=== PATIENT | female | born 2005 | race Hispanic/Latino ===

== ENCOUNTER 2024-05-27 14:59 | Emergency (ER) | payer SELFPAY ==
[~2024-05-27] VITALS: Ht 165.1 cm; Wt 50.8 kg
--- NOTE | 2024-05-27 15:15 | ERN ---
General Chief Complaint: Syncope Stated Complaint: ABDOMINAL PAIN,DIZZY,VOMITTING,FAINTING Time Seen by MD: 15:02 History of Present Illness Initial Comments 19-year-old female otherwise healthy presents for syncopal episode. She reports she was taking a shower, she felt faint. She had a control follow up with the ground. She did not hit her head. She reports that she has been in her normal state of health other than having a recent heavy menstrual cycle. She denies any flu-like symptoms. Denies any vomiting or diarrhea. She denies any previous syncopal episodes. She denies any recent palpitations or chest pains. Allergies: Coded Allergies: No Known Drug Allergies (Unverified Allergy, Unknown, 05/27/24) ROS Dictation CONSTITUTIONAL: No chills, no fever, no weakness, no diaphoresis, no malaise. HEAD/FACE: No signs of trauma. EENT: No eye pain, no blurred vision, no tearing, no double vision, no ear pain, no ear discharge, no nose pain, no nasal congestion, no throat pain, no throat swelling, no mouth pain. RESPIRATORY: No cough, no orthopnea, no SOB, no stridor, no wheezing. CARDIOVASCULAR: Syncopal episode GASTROINTESTINAL/ABDOMINAL: No abdominal pain, no constipation, no diarrhea, no nausea, no vomiting. GENITOURINARY: No abnormal discharge, no dysuria, no frequent urination, no hematuria. No complaints of pain in the genitals. MUSCULOSKELETAL: No back pain, no gout, no joint pain, no joint swelling, no muscle pain, no muscle stiffness, no neck pain. INTEGUMENTARY: No change in color, no change in hair/nails, no dryness, no lesion, no lumps, no rash. NEUROLOGICAL/PSYCH: No anxiety, not depressed, no emotional problem, no headache, no numbness, no pre-existing deficit, no history of seizures, no tremors, no weakness. HEMATOLOGIC/LYMPHATIC: Not anemic, no history of blood clots, no apparent bleeding, no bruising, glands not swollen. All Systems Negative, Except as Noted. Physical Exam Physical Exam Dictation VITAL SIGNS: Reviewed. GENERAL APPEARANCE: Alert, oriented x3, no acute distress HEAD AND FACE: Non-traumatic. EYES: PERRL, pink conjunctivas, eyelid no trauma, anterior chamber clear. EARS: Pinnas intact and no signs of trauma or erythema. Ear canals clear and no discharge. TMs no erythema. NOSE: No discharge, no bleeding. OROPHARYNX: Mouth normal, teeth no caries, tongue pink. Pharynx clear, no erythema. Tonsils no exudates, no abscesses noted. Mucous membrane moist. NECK: Supple, non-tender, no thyromegaly, no masses, no JVD, no bruits. BREAST: Deferred. CHEST: No tenderness, no crepitus, no paradoxical movement, no retractions. LUNGS: Clear, well-ventilated, symmetric, no rales, no wheezing, no rhonchi, no stridor, good breath sounds bilaterally. HEART: Regular rate, regular rhythm, no murmur, no gallops. VASCULAR: No peripheral edema. ABDOMEN: Soft, positive bowel sounds, nondistended, no guarding, nontender, no rebound, no masses no hepatomegaly, no splenomegaly, no Crawford's sign, no hernia s. RECTAL: Deferred. GENITAL: Deferred. NEUROLOGICAL: Normal speech, gross motor function intact, gross sensory function intact. MUSCULOSKELETAL: Neck nontender, full range of motion, back nontender, full range of motion. EXTREMITIES: Nontender, full range of motion. SKIN: Color pink, dry, no turgor, no rash, no lacerations, no abrasions, no contusions. LYMPHATICS: Deferred. Results Laboratory and Microbiology Lab and Micro Result Laboratory Tests Test 05/27/24 15:30 White Blood Count 6.5 K/uL (4.8-10.8) Red Blood Count 4.44 MIL/uL (4.00-5.50) Hemoglobin 13.0 g/dL (12.0-16.0) Hematocrit 40.8 % (36-48) Mean Corpuscular Volume 91.9 fL (80-100) Mean Corpuscular Hemoglobin 29.3 pg (27.0-33.0) Mean Corpuscular Hemoglobin Concent 31.9 g/dL (32.0-36.0) L Red Cell Distribution Width 13.2 % (11.0-15.5) Platelet Count 191 K/uL (130-400) Mean Platelet Volume 12.1 fL (7.5-10.5) H Immature Granulocyte % (Auto) 0.2 % (0-1) Neutrophils (%) (Auto) 77.3 % (40.0-77.0) H Lymphocytes (%) (Auto) 14.0 % (21.0-51.0) L Monocytes (%) (Auto) 6.3 % (3.0-13.0) Eosinophils (%) (Auto) 1.7 % (0.0-8.0) Basophils (%) (Auto) 0.5 % (0.0-5.0) Neutrophils # (Auto) 5.0 K/uL (1.8-7.7) Lymphocytes # (Auto) 0.9 K/uL (1.0-4.8) L Monocytes # (Auto) 0.4 K/uL (0.1-1.0) Eosinophils # (Auto) 0.11 K/uL (0.00-0.70) Basophils # (Auto) 0.03 K/uL (0.00-0.20) Absolute Immature Granulocyte (auto 0.01 K/uL (0-1) Nucleated Red Blood Cells 0.0 % (0.0-0.19) Sodium Level 140 mmol/L (136-145) Potassium Level 3.6 mmol/L (3.5-5.1) Chloride Level 104 mmol/L (101-111) Carbon Dioxide Level 30 mmol/L (21-32) Blood Urea Nitrogen 9 mg/dL (7-18) Creatinine 0.7 mg/dL (0.5-1.0) Glomerular Filtration Rate Calc 127 mL/min (>90) Random Glucose 116 mg/dL (70-105) H Total Calcium 8.7 mg/dL (8.5-10.1) Total Creatine Kinase 63 U/L (21-232) Troponin I High Sensitivity < 4.0 ng/L (4-50) L Serum Test, Qualitative NEGATIVE (NEGATIVE) MDM CC: Syncopal episode, heavy menstrual cycle Historian: Patient Comorbidities: None Limitations by social determinants: None Differential diagnosis: Vasovagal syncope, anemia, electrolyte abnormality, cardiogenic syncope, other. EKG: Sinus rhythm rate of 63 with a normal axis, good R-wave progression, intervals are stable. No STEMI. Independently interpreted by me. Labs (independently ordered & interpreted by me): CBC is normal. Chemistry panel is normal. CK normal. Troponin normal. HCG is negative. Treatment and ED: 1 L normal saline. Patient likely had a vasovagal episode. I do not see any signs of anemia, electrolyte abnormalities, or cardiac causes of the syncope. She has a normal cardiac exam. She was back to baseline currently. At this point in time we will discharge and recommend PCP follow up. ED Course Orders Procedure Category Date Status Time Cbc With Differential LAB 05/27/24 Complete 15:13 Cardiac Panel LAB 05/27/24 Complete 15:13 Testing, LAB 05/27/24 Complete Serum Hcg 15:13 Urinalysis Profile LAB 05/27/24 Logged 15:13 Chest 1vw RAD 05/27/24 Logged 15:13 12 Lead Ekg Tracing- EKG 05/27/24 Complete Technical 15:13 0.9%Nacl 1000ml (Ns PHA 05/27/24 Complete 1000ml) 15:30 Basic Metabolic Panel LAB 05/27/24 Complete 15:13 Current Medications Medications (Trade) Dose Ordered Sig/Danyell Route PRN Reason Start Time Stop Time Status Last Admin Dose Admin Sodium Chloride 1,000 ml @ 0 mls/hr ONCE ONCE IV 05/27/24 15:30 05/27/24 15:31 DC Vital Signs Date Time Temp Pulse Resp B/P (MAP) Pulse Ox O2 Delivery O2 Flow Rate FiO2 05/27/24 15:13 97.9 63 16 110/69 99 Room Air DX & DISP Disposition: Discharge Departure Impression: Primary Impression: Episode of syncope Condition: Stable Additional Instructions: You had a syncopal episode today. As we discussed, most causes of syncope are not dangerous. You do not appear to have any dangerous causes today. Your EKG is normal. Your blood work (CBC, BMP, CK, hCG, troponin) is normal. You received 1 L of normal saline here in the ER. I recommend that you get good nutrition and hydration for the next day or two. Try to get at least 8 hours of sleep. Avoid drugs and alcohol. Monitor for any heart palpitations, chest pains, other episodes of syncope, or any other concerning symptom. Return to the emergency department if these develop. Otherwise, I do recommend that you follow up with your primary doctor next week for re-evaluation. Referrals: SELF,REFERRAL (PCP) ORTEGA JUAREZ DO May 27, 2024 15:15
--- NOTE | 2024-05-27 15:29 | EKG ---
[facility] Test Date: 2024-05-27 Test Time: 15:26:49 Pat Name: TEMO TERRELL Department: [facility] Room: Gender: F Installation Manager: [birth year] : 2005 Requested By: ORTEGA JUAREZ Order Number: [id number] Reading MD: Beau Mcneill Measurements Intervals [place] Rate: 63 P: 14 [place]: 142 QRS: 86 QRSD: 70 T: 29 QT: 410 QTc: 419 Interpretive Statements Sinus rhythm No previous ECG available for comparison Electronically Signed On 05-27-2024 19:50:25 RN TELEPHONE TRIAGE by Beau Mcneill Please click the below link to view image of tracing.
[2024-05-27 15:48] LABS: BASOPHILS # (AUTO) 0.03 K/uL (0.00-0.20); BASOPHILS % (AUTO) 0.5 % (0.0-5.0); EOSINOPHILS # (AUTO) 0.11 K/uL (0.00-0.70); EOSINOPHILS % (AUTO) 1.7 % (0.0-8.0); HEMATOCRIT 40.8 % (36-48); IMMATURE GRANULOCYTE ABSOLUTE 0.01 K/uL (0-1); LYMPHOCYTES # (AUTO) 0.9 K/uL (1.0-4.8); MEAN CORPUSCULAR HEMOGLOBIN 29.3 pg (27.0-33.0); MEAN CORPUSCULAR HGB CONC 31.9 g/dL (32.0-36.0); MEAN CORPUSCULAR VOLUME 91.9 fL (80-100); MONOCYTES # (AUTO) 0.4 K/uL (0.1-1.0); MONOCYTES % (AUTO) 6.3 % (3.0-13.0); NEUTROPHILS % (AUTO) 77.3 % (40.0-77.0); PLATELET COUNT (AUTO) 191 K/uL (130-400); RED BLOOD CELL COUNT(AUTO) 4.44 MIL/uL (4.00-5.50); RED CELL DISTRIBUTION WIDTH 13.2 % (11.0-15.5); WHITE BLOOD COUNT (AUTO) 6.5 K/uL (4.8-10.8)
[2024-05-27 16:13] LABS: CARBON DIOXIDE 30 mmol/L (21-32); CHLORIDE 104 mmol/L (101-111); CREATININE 0.7 mg/dL (0.5-1.0); GLOMERULAR FILTR. RATE CALC 127 mL/min (>90); GLUCOSE,RANDOM 116 mg/dL (70-105); POTASSIUM 3.6 mmol/L (3.5-5.1); SODIUM SERUM 140 mmol/L (136-145); UREA NITROGEN, BLOOD 9 mg/dL (7-18)
[2024-05-27 16:21] LABS: CREATINE KINASE, TOTAL 63 U/L (21-232)
--- NOTE | 2024-05-27 17:17 | HMCIMG ---
Exam Type: CHEST 1VW Clinical Information: SYNCOPE Comparison: None Findings: The lungs are clear of infiltrates. The heart is normal in size. The bony and soft tissue structures of the chest are unremarkable. Impression: Clear lungs.
[2024-05-27] MEDS: 0.9%NACL 1000ML 1,000 ML IV ONE (19:50)
[2024-05-27 19:53] VITALS: BP 114/52; PULSE 74; RESP 18; TEMP 97.8; O2SAT 98
== END 2024-05-27 20:48 | disposition home or self-care (01) ==
LOC: EDH 14:59
DX: R55 Syncope and collapse (principal)
CPT/HCPCS: 36415; 71045; 80048; 82550; 84484; 84703; 85025; 93005; 99285